=== PATIENT | female | born 1990 | race African-American/Black ===

== ENCOUNTER 2021-11-12 12:43 | Emergency (ER) | payer BC, OTHER ==
--- NOTE | 2021-11-12 14:49 | ER ---
Nurse's Notes [facility] Name: Zechariah Lyles Age: 30 yrs Sex: Female : 1990 Arrival Date: 11/12/2021 Time: 12:56 Bed Waiting Private MD: Diagnosis: ED Course: 11/12 12:56 Patient arrived in ED. ds1 14:48 Patient's name was called from ER lobby. No response. Unable to locate patient. Will jh5 disposition as left without being seen by a provider. Administered Medications: No medications were administered Outcome: 14:48 Patient left the ED. jh5 Signatures: Maira Nam ds1 Liz Cunningham RN RN jh5
== END 2021-11-12 14:48 | disposition left against medical advice (07) ==
LOC: ER 12:43
DX: Z02.9 Encounter for administrative examinations, unspecified (principal)

== ENCOUNTER 2025-08-04 16:33 | Emergency (ER) | payer OTHER ==
--- OUTSIDE RECORDS SUMMARY | 2025-08-04 16:37 | XMS REPORT | Continuity of Care Document ---
Author Name Unknown Address [address] [place] [address] [facility] [place] Address [address] [place] [address] Care Team Providers Care Dispute Coordinator Name Role Phone Marianne Guzman Primary Care Physician [phone] NELLY TONY Attending Clinician Unavailable SUZI PEREZ Attending Clinician Unavailab le LAB90 Attending Clinician Unavailable BASSAM TOMLINSON Attending Clinician Unavailable Only, Ang Db Test Attending Clinician UnavailBassam Keys MD Attending Clinician [phone] Marianne Guzman Attending Clinician JOHNY NEGRETE Attending Clinician Unavailable Doctor Unassigned, [place] Attending Clinician U SUZI Ruano Attending Clinician Unavailable Payers Payer Name Policy Type Policy Number Effective Date Expirati on Date Source [facility] [id number] 2018 00:00:00 [facility] [employer] 9 [id number] 2025 00:00:00 Problems Condition Name Condition Details Condition Category Status Onset Date Resolution Date Last Treatment Date Treating Clinician Comments Source Moderate episode of recurrent major depressive disorder Moderate episode of recurrent major depressive disorder Disease Active 01-19 00:00: 00 [facility] Allergies, Adverse Reactions, Alerts Allergy Name Allergy Type Status Severity Reaction(s) Onset Date Inactive Date Treating Clinician Comments Source NO KNOWN ALLERGIE S Drug Class Active [facility] Social History Social Habit Start Date Stop Date Quantity Comments Source [facility] of tobacco use Cigarette Smoker [facility] History SDOH Alcohol Frequency [facility] History SDOH [facility] History SDOH Alcohol Binge [facility] Exposure to SARS-CoV-2 (event) 2021-10-13 00:00:00 2021-11-12 13:58:[address] [facility] History of Social function 2019-05-26 00:00:00 2019-05-26 00:00:00 [facility] Alcohol intake 2019-05-18 00:00:00 2019-05-18 00:00:00 Current drinker of alcohol (finding) [facility] Alcohol Comment 2019-01-19 00:00:00 2019-01-19 00:00:00 6-12 pack of beer daily for >1 year. Now only drinking once a week. [facility] Cigarettes smoked current (pack per day) - Reported 2018-09-20 00:00:00 2018-09-20 00:00:00 [facility] Cigarette pack-years 2018-09-20 00:00:00 2018-09-20 00:00:00 [facility] Tobacco use and exposure 2018-09-20 00:00:00 2018-09-20 00:00:00 Smokeless tobacco non-user [facility] Sex Assigned At 1990 00:00:00 1990 00:00:00 [facility] Smoking Status Start Date Stop Date Source Smokes tobacco daily 2018-09-20 00:00:00 [facility] Medications Ordered Medication Name Filled Medication Name Start Date Stop Date Current Medication? Ordering Clinician Indication Dosage Frequency Signature (SIG) Comments Components Source ibuprofen 800 mg tablet 12-14 00:00: 00 Yes [id number] 4 800mg Take 1 tablet by mouth every 8 (eight) hours as needed for Pain (scale 4-6). [facility] methocarbam oL 750 mg tablet 12-14 00:00: 00 Yes [id number] 4 750mg Take 1 tablet by mouth 4 (four) times daily as needed for Other (muscle spasm). [facility] CIMETIDINE 400 mg tablet 2018-11 00:00: 00 Yes [id number] TAKE 1 TABLET BY MOUTH TWICE DAILY [facility] CITALOPRAM 20 mg tablet 2018-11 00:00: 00 Yes [id number] 20mg TAKE 1 TABLET BY MOUTH DAILY [facility] CITALOPRAM 40 mg tablet 04-04 00:00: 00 Yes [id number] 40mg TAKE 1 TABLET BY MOUTH DAILY [facility] Encounters Start Date/Time End Date/Time Encounter Type Admission Type Attending [facility] Care Department Encounter ID Source 2021-09-14 20:39:40 Emergency [facility] [id number] [facility] 2025-10-20 15:00:00 2025-10-20 15:00:00 Outpatient NELLY TONY [id number] [facility] 2025-08-09 10:30:00 2025-08-09 10:30:00 Outpatient SUZI PEREZ [id number] [facility] 2025-07-13 13:50:00 2025-07-13 13:50:00 Outpatient LAB90 JESSICA EARLY [id number] [facility] 2025-07-07 13:15:00 2025-07-07 13:15:00 Outpatient JESSICA EARLY [id number] [facility] 2025-06-29 11:00:00 2025-06-29 11:00:00 Outpatient JESSICA EARLY [id number] [facility] 2025-06-28 11:45:00 2025-06-28 11:45:00 Outpatient LAB90 JESSICA EARLY [id number] [facility] 2025-06-28 11:00:00 2025-06-28 11:00:00 Outpatient SUZI PEREZ JESSICA [id number] Jessica [facility] 2024-09-21 08:17:18 2024-09-21 08:17:18 Outpatient [facility] [id number] Tomas Luu 2024-07-22 11:34:04 2024-07-22 11:34:04 Outpatient [facility] [id number] Tomas Luu 2021-11-12 14:00:00 2021-11-12 14:20:00 Outpatient R BASSAM TOMLINSON [facility] [id number] [facility] 2021-11-12 14:00:00 2021-11-12 14:15:00 Laboratory Only Only, Ang Db Test [facility] AKIN[facility] 1..840.114 [id number] [facility] 2021-02-14 00:00:00 2021-02-14 00:00:00 Patient Secure Msg [facility] ONE 1..840.114 [id number] [facility] 2020-12-27 16:20:00 2020-12-27 16:20:00 Outpatient JOHNY LUNDBERG [facility] [id number] [facility] 2020-06-08 00:00:00 2020-06-08 00:00:00 Patient Secure Msg Doctor Unassigned, [place] [facility] 1..840.114 [id number] [facility] 2020-06-06 08:20:00 2020-06-06 08:20:00 Outpatient R [facility] [id number] [facility] 2020-05-25 13:00:00 2020-05-25 13:00:00 Outpatient SUZI GODINEZ [facility] [id number] [facility]
[2025-08-04 17:45] LABS: Absolute Lymphocytes (CBC) 1.8 K/uL (0.7-4.9); Hematocrit 39.0 % (36.0-45.0); Hemoglobin 13.3 g/dL (12.0-15.0); MCH 30.9 pg (27.0-35.0); MCHC 34.1 g/dL (32.0-36.0); MCV 90.8 fL (80-100); MPV 10.2 fL (7.6-11.3); Nucleated RBC Absolute Count 0.0 (0-0); Nucleated Red Blood Cells % 0.0 % (0-0); RBC Red Blood Cell Count 4.29 M/uL (3.86-4.86); White Blood Count 9.00 thou/uL (4.3-10.9)
[2025-08-04 17:55] LABS: PT Prothrombin Time 13.4 SECONDS (10-13.0); PTT, Activated Partial Thromb 30.6 SECONDS (27.2-37.4); Protime INR 1.19
[2025-08-04 18:09] LABS: ALT/SGPT 16 U/L (13-56); Albumin 4.3 g/dL (3.4-5.0); Albumin/Globulin Ratio 1.1 (1.1-1.8); Alkaline Phosphatase 36 U/L (45-117); Anion Gap 9.5 mEq/L (5.0-15.0); BUN Blood Urea Nitrogen 13 mg/dL (7-18); Bilirubin Indirect, Calculated 0.9 mg/dL (0.2-0.8); Globulin 4.0 g/dL (2.3-3.5); Glucose Level 169 mg/dL (74-106); Magnesium 2.3 mg/dL (1.6-2.4); Potassium 3.5 mEq/L (3.5-5.1); Troponin High Sensitivity 6.2 pg/mL (<58.9)
--- NOTE | 2025-08-04 18:11 | RAD REPORT ---
EXAM: Chest Single View HISTORY: 34 years Female syncope COMPARISON: No prior exams FINDINGS: LUNGS/PLEURA: The lungs are clear. No pleural effusions or pneumothorax. No pulmonary edema. CARDIAC/MEDIASTINUM: The cardiac silhouette is within normal limits. UPPER ABDOMEN: No significant abnormality. BONES: No acute abnormality. LINES/TUBES/OTHER: N/A IMPRESSION: No evidence of acute cardiopulmonary disease.
[2025-08-04 18:14] LABS: AST/SGOT < 10 U/L (15-37)
[2025-08-04 18:18] LABS: Sqamous Epithelial <5 /HPF (None Seen); Urine Culture Reflex Order NOT NEEDED; Urine Microscopic Reflex YN ORDER UMIC; Urine Yeast (Budding) Trace /HPF (None Seen)
[2025-08-04 18:29] LABS: METHAMPHETAM NEGATIVE (NEGATIVE); THC Cannibis NEGATIVE (NEGATIVE)
--- NOTE | 2025-08-04 19:03 | RAD REPORT ---
EXAMINATION: Head C Spine Mpr Wo Con CLINICAL INDICATION: Female, 34 years old. syncope, left leg weakness TECHNIQUE: Axial CT images from the skull base to the vertex without intravenous contrast. Axial CT i mages through the cervical spine were obtained without intravenous contrast. Sagittal and coronal reformatted images were created from the data set. Coronal and sagittal reformatted images were creat ed from the data set. One or more of the following dose reduction techniques were used: Automated exposure control, adjustment of the mA and/or kV according to patient size, and/or iterative reconstr uction. Unless otherwise specified, incidental findings do not require dedicated imaging follow-up. [id number]. COMPARISON: No prior exams FINDINGS: Head: INTRACRANIAL: No acute intracranial hemorrhage. No acute large vascular territory infarct. No hydroce phalus. No mass effect or midline shift. No significant white matter disease. VASCULATURE: No visualized abnormalities in the arteries or dural venous sinuses. SCALP/SKULL: No calvarial fracture identified. No acute soft tissue abnormality. SINUSES: The visualized paranasal sinuses are mostly clear. No significant mastoid fluid. Cervical spine: ALIGNMENT: The cervical spine has normal alignment without scoliosis or spondylolisthesis. BONE: Vertebral body heights are maintained. No aggressive osseous lesions. DEGENERATIVE: No significant focal degenerative changes. SOFT TISSUE: No significant abnormalities in the soft tissue of the neck. The visualized lung apices are clear. IMPRESSION: No acute intracranial abnormality. No acute fracture or traumatic malalignment of the cervical spine.
--- NOTE | 2025-08-04 19:04 | RAD REPORT ---
EXAMINATION: Neck Angio CLINICAL INDICATION: Female, 34 years old. syncope TECHNIQUE: Axial CT images were obtained from the aortic arch to the skull base after intravenous con trast utilizing angiographic protocol with 3D post-processing (maximum intensity projection images, volume rendered images and/or shaded surface rendered images). One or more of the following dose redu ction techniques were used: Automated exposure control, adjustment of the mA and/or kV according to patient size, and/or iterative reconstruction. Unless otherwise specified, incidental findings do not require dedicated imaging follow-up. [id number]. NASCET criteria used. Mild 0-49% stenosis Moderate 50-69% stenosis Severe 70-99% stenosis COMPARISON: No prior exam. FINDINGS: AORTA: Normal RIGHT: - CCA: No flow limiting stenosis (>= 50%). No dissection. - ICA: No flow limiting stenosis (>= 50%). No dissection. - ECA: No flow limiting stenosis (>= 50%). No dissection. LEFT: - CCA: No flow limiting stenosis (>= 50%). No dissection. - ICA: No flow limiting stenosis (>= 50%). No dissection. - ECA: No flow limiting stenosis (>= 50%). No dissection. VERTEBRAL: Patent SOFT TISSUE: No significant neck soft tissue abnormalities. The visualized lung apices are clear. 3D images confirm these findings. IMPRESSION: No arterial dissection or stenosis identified within the neck.
--- NOTE | 2025-08-04 19:10 | RAD REPORT ---
EXAMINATION: Head angio CLINICAL INDICATION: Female, 34 years old. SYNCOPE TECHNIQUE: Axial CT images were obtained through the head after intravenous contrast utilizing angiog raphic protocol with 3D post-processing (maximum intensity projection images, volume rendered images and/or shaded surface rendered images). One or more of the following dose reduction technique s were used: Automated exposure control, adjustment of the mA and/or kV according to patient size, and/or iterative reconstruction. Unless otherwise specified, incidental findings do not require dedic ated imaging follow-up. COMPARISON: No prior exam. FINDINGS: RIGHT: ICA: No aneurysm, stenosis, or occlusion. CALLIE: No aneurysm, stenosis, or occlusion. MCA: No aneurysm, stenosis, or occlusion. RIGGING SLINGER: No aneurysm, stenosis, or occlusion. LEFT: ICA: The left cavernous carotid has a segmental moderate to severe stenosis. The petrous ICA is more normal in caliber. CALLIE: No aneurysm, stenosis, or occlusion. MCA: No aneurysm, stenosis, or occlusion. RIGGING SLINGER: No aneurysm, stenosis, or occlusion. Vertebrobasilar: The vertebral arteries are patent. The basilar artery is normal in appearance. 3D images confirm these findings. IMPRESSION: Moderate to severe segmental narrowing of the left cavernous carotid of uncertain chronicity. The int racranial right ICA is somewhat larger than typically seen. The findings may be chronic. It is unclear if this is the etiology of the patient's symptoms. Could consider neurointerventional referra l and/or consultation.No large vessel occlusion or aneurysm.
[2025-08-04] MEDS ORDERED: LORAZEPAM 1 MG TABLET ONE (19:25)
--- NOTE | 2025-08-04 20:16 | EDPHYS ---
Physician Documentation [facility] Name: Zechariah Lyles Age: 34 yrs Sex: Female : 1990 Arrival Date: 08/04/2025 Time: 16:33 Bed 14 Private MD: ED Physician Naseem Batres HPI: 08/04 17:05 This 34 yrs old Black Female presents to ER via Ambulatory with complaints of Passed cp Out Prior To Arrival, Head Injury-Adult. 17:05 The patient has experienced syncope, lost consciousness. cp 17:05 Patient is a 34-year-old female with no significant past medical history who presents cp emergency department after reported syncopal episode. Patient reports she was standing when she leaned over to put on her sock and then reports waking up on the floor. 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 Patient reports she did not lose consciousness but reports being dazed and having to stop work to go sit down in the office to recover. Patient reports she does have a appointment with neurology but that is not until October. [employer]AD [employer]ER: 16:53 LMP 07/06/2025, unknown dd2 Historical: - Allergies: 16:53 No Known Allergies; dd2 - PMHx: 16:53 None; dd2 - PSHx: 16:53 None; dd2 - Immunization history:: Adult Immunizations up to date. - Infectious Disease History:: Denies. - Social history:: Smoking status: Reported history of juuling and/or vaping. ROS: 17:10 Constitutional: Negative for body aches, chills, fever, poor PO intake, cp 17:10 Eyes: Negative for injury, pain, redness, and discharge, cp 17:10 ENT: Negative for drainage from ear(s), ear pain, sore throat, difficulty swallowing, difficulty handling secretions, 17:10 Cardiovascular: Negative for chest pain, edema, palpitations, 17:10 Respiratory: Negative for cough, shortness of breath, wheezing, 17:10 Abdomen/GI: Negative for abdominal pain, vomiting, diarrhea, constipation, 17:10 Back: Negative for pain at rest, pain with movement, 17:10 : Negative for urinary symptoms, vaginal bleeding, 17:10 Neuro: Positive for headache, syncope, weakness of left hand and left leg, Negative for altered mental status, dizziness, seizure activity, 17:10 All other systems are negative, Exam: 17:15 Constitutional: The patient appears in no acute distress, alert, awake, cp non-diaphoretic, non-toxic, well developed, well nourished, anxious, 17:15 Head/Face: Normocephalic, atraumatic. cp 17:15 Eyes: Periorbital structures: appear normal, Conjunctiva: normal, no exudate, no injection, Sclera: no appreciated abnormality, Lids and lashes: appear normal, bilaterally, 17:15 ENT: External ear(s): are unremarkable, Ear canal(s): are normal, clear, TM's: dullness, bilaterally, Nose: is normal, Mouth: Lips: moist, Oral mucosa: moist, Posterior pharynx: Airway: no evidence of obstruction, patent, erythema, is not appreciated, exudate, is not appreciated, 17:15 Neck: External neck: tenderness, that is mild, of the lower cervical area, ROM/movement: pain, that is mild, with any movement, limited range of motion, is not appreciated, 17:15 Chest/axilla: Inspection: normal, Palpation: is normal, no crepitus, no tenderness, 17:15 Cardiovascular: Rate: normal, Rhythm: regular, Edema: is not appreciated, JVD: is not appreciated, 17:15 Respiratory: the patient does not display signs of respiratory distress, Respirations: normal, no use of accessory muscles, no retractions, labored breathing, is not present, Breath sounds: are clear throughout, no decreased breath sounds, no stridor, no wheezing, 17:15 Abdomen/GI: Inspection: abdomen appears normal, Palpation: abdomen is soft and non-tender, in all quadrants, 17:15 Back: pain, is absent, ROM is normal, 17:15 Neuro: Orientation: to person, place \T\ time. 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 cp Vital Signs: 16:48 BP 124 / 78; Pulse 90; Resp 16; Temp 98.2; Pulse Ox 100% on R/A; Weight 58.51 kg; Pain dd2 10/10; 19:39 BP 121 / 91; Pulse 72; Resp 16; Pulse Ox 100% ; Pain 0/10; kt5 20:14 BP 107 / 6; Pulse 95; Resp 18; Pulse Ox 99% ; kt5 21:09 BP 122 / 86; Pulse 76; Resp 18; Pulse Ox 99% ; Pain 0/10; kt5 22:00 BP 152 / 73; Pulse 88; Resp 16; Temp 98.2; Pulse Ox 100% ; Pain 0/10; kt5 16:48 Pain Scale: Adult dd2 19:39 Pain Scale: Adult kt5 21:09 Pain Scale: Adult kt5 22:00 Pain Scale: Adult kt5 [place] Coma Score: 16:48 Eye Response: spontaneous(4). Motor Response: obeys commands(6). Verbal Response: dd2 oriented(5). Total: 15. MDM: 16:44 Medical Screening Exam initiated cp 18:00 Differential Diagnosis: cardiac arrhythmia, cerebrovascular accident, GI bleed, cp idiopathic syncope, pseudo seizure, seizure, transient ischemic attack, vasovagal episode. 20:33 Data reviewed: vital signs, lab test result(s), radiologic studies, CT scan, plain tt7 films. Historians other than the Patient: Parent: . ED course: This is a 34-year-old female who has had 2 syncopal episodes since a head injury a few months ago, since then has been having shakiness of her voice and left-sided upper and lower extremity weakness, had another syncopal episode today, workup showed some moderate to severe stenosis of the left ICA, or weaknesses not acute, not a candidate for thrombolytics, no acute large vessel occlusion seen on imaging, on my assessment the patient is awake and alert with stable vital signs, no acute distress, normal respirations, stable vital signs, does have some shakiness to her voice and some weakness of the left upper and lower extremities, will transfer to higher level of care for MRI imaging and further specialty evaluation and workup. 20:35 ED course: consult with DR Soares, hospitalist at [facility], will accept patient cp as transfer after discussion. 08/04 17:04 Order name: UDS; Complete Time: 19:02 08/04 19:03 Interpretation: Reviewed. 08/04 17:04 Order name: Test, Urine; Complete Time: 19:02 08/04 17:04 Order name: UA Rfx Arcenio Cult if indicated; Complete Time: 18:24 08/04 19:03 Interpretation: Normal except: UCLA Turbid; UKET 4+ (Over); UBLD Trace; UPROT 1+; UUROB cp 1+; BYST Trace. 08/04 17:04 Order name: Basic Metabolic Panel; Complete Time: 18:24 08/04 19:03 Interpretation: Normal except: CL 110; GLUC 169; GFR 79. 08/04 17:04 Order name: CBC with Diff; Complete Time: 18:24 08/04 17:04 Order name: Hepatic Function; Complete Time: 18:24 08/04 19:03 Interpretation: Normal except: AST < 10; ALK 36; BILIT 1.2; BILID 0.3; IBILI, CALC 0.9; cp TP 8.3; GLOB 4.0. 08/04 17:04 Order name: Magnesium; Complete Time: 18:24 08/04 17:04 Order name: Protime (+inr); Complete Time: 18:24 08/04 17:04 Order name: Ptt, Activated; Complete Time: 18:24 08/04 17:04 Order name: Troponin High Sensitivity; Complete Time: 18:24 08/04 17:04 Order name: Chest Single View XRAY; Complete Time: 18:24 08/04 18:27 Order name: CT Head C Spine; Complete Time: 19:20 08/04 19:20 Interpretation: Reviewed report. 08/04 18:27 Order name: CT Head Angio; Complete Time: 19:20 08/04 18:27 Order name: CT Neck Angio; Complete Time: 19:20 08/04 17:04 Order name: EKG; Complete Time: 17:04 08/04 17:04 Order name: Orthostatic Blood Pressure; Complete Time: 18:16 08/04 17:04 Order name: Cardiac monitoring; Complete Time: 17:43 08/04 17:04 Order name: EKG - Nurse/Tech; Complete Time: 17:58 cp 08/04 17:04 Order name: IV Saline Lock; Complete Time: 17:43 cp 08/04 17:04 Order name: Labs collected and sent; Complete Time: 17:43 cp 08/04 17:04 Order name: NPO; Complete Time: 17:43 cp 08/04 17:04 Order name: O2 Per Protocol; Complete Time: 17:43 cp 08/04 17:04 Order name: O2 Sat Monitoring; Complete Time: 17:43 cp EC:00 Rate is 77 beats/min. Rhythm is regular. NC interval is normal. QRS interval is normal. cp QT interval is normal. T waves are Inverted in leads aVR, V2, V3. Interpreted by me. Reviewed by me. Administered Medications: 19:37 Drug: LORazepam PO 1 mg PO once Route: PO; kt5 20:16 Follow up: Response: No adverse reaction; Anxiety decreased kt5 Disposition: 17:56 I was immediately available on-site in the Emergency Department for consultation in the ms3 care of the patient. 23:42 Co-signature as Attending Physician, Naseem Batres DO I reviewed the patient's care tt7 provided by Advanced Practice Provider \T\ agree w/ the diagnosis \T\ care plan. I personally saw the pt \T\ performed a substantive portion of the visit, incldng all aspects of the (History/Exam/Medical Decision Making). Disposition Summary: 08/04/25 20:15 Transfer Ordered Notes: Transfer Location: [facility] cp Reason: Higher level of care cp Condition: Stable cp Problem: new cp Symptoms: have improved cp Accepting Physician: DR Soares(08/04/25 22:53) kt5 Diagnosis - Syncope cp - Moderate/Severe Stenosis Left Cavernous Carotid cp - Weakness - left arm and left leg cp Forms: - Medication Reconciliation Form cp - SBAR form cp Signatures: Dispatcher [employer] EDMS Jaylon Turner PA-C PA-C cp Sims, Marcus, DO DO ms3 SANAM PISANO RN RN dd2 Carolina Aguirre RN RN kt5 Naseem Batres DO DO tt7 Corrections: (The following items were deleted from the chart) 17:04 17:04 URINE DRUG SCREEN+UC.LAB.BRZ ordered. EDMS EDMS 17:04 17:04 Test, Urine+UC.LAB.BRZ ordered. EDMS EDMS 17:04 17:04 UA Rfx Arcenio Cult if indicated+U.LAB.BRZ ordered. EDMS EDMS 17:04 17:04 BASIC METABOLIC PANEL+C.LAB.BRZ ordered. EDMS EDMS 17:04 17:04 CBC+H.LAB.BRZ ordered. EDMS EDMS 17:04 17:04 HEPATIC FUNCTION+C.LAB.BRZ ordered. EDMS EDMS 17:04 17:04 MAGNESIUM+C.LAB.BRZ ordered. EDMS EDMS 17:04 17:04 PROTIME (+INR)+COAG.LAB.BRZ ordered. EDMS EDMS 17:04 17:04 PTT, ACTIVATED+COAG.LAB.BRZ ordered. EDMS EDMS 17:04 17:04 Troponin High Sensitivity+C.LAB.BRZ ordered. EDMS EDMS 18:27 18:27 Neck Angio+CT.RAD.BRZ ordered. EDMS EDMS 20:17 20:15 Doctor cp cp 21:15 20:17 Doctor cp cp 22:53 21:15 DR Soares cp kt5
--- NOTE | 2025-08-04 20:16 | ER ---
Nurse's Notes [facility] Name: Zechariah Lyles Age: 34 yrs Sex: Female : 1990 Arrival Date: 08/04/2025 Time: 16:33 Bed 14 Private MD: Diagnosis: Syncope;Moderate/Severe Stenosis Left Cavernous Carotid;Weakness-left arm and left leg Presentation: 08/04 16:48 Chief complaint: Patient states: SHE LEANED OVER PUTTING ON SOCKS, WOKE UP ON THE dd2 FLOOR. REPORTS HURTING FROM HITTING SOMETHING. FALL UNWITNESSED, UNSURE HOW LONG ON THE FLOOR. PT REPORTS PASSED OUT IN MARCH, WENT TO [facility] IN JUNE AND HAS NEURO APT IN Oct FOR PASSING OUT, TREMORS AND MUSCLE WEAKNESS AMD LT LEG PAIN. Coronavirus screen: At this time, the client does not indicate any symptoms associated with coronavirus-19. Ebola Screen: No symptoms or risks identified at this time. Mechanism of Injury: resulted from a fall, from a standing position. Initial Sepsis Screen: Does the patient meet any 2 criteria? No. Patient's initial sepsis screen is negative. Does the patient have a suspected source of infection? No. Patient's initial sepsis screen is negative. Risk Assessment: Do you want to hurt yourself or someone else? Patient reports no desire to harm self or others. Onset of symptoms was August 04, 2025. 16:48 Method Of Arrival: Ambulatory dd2 16:48 Acuity: KARRI 3 dd2 Triage Assessment: 16:53 General: Appears uncomfortable, Behavior is cooperative, appropriate for age, crying. dd2 Pain: Complains of pain in top of head and left leg. Neuro: Level of Consciousness is awake, alert, obeys commands, Oriented to person, place, time, situation, Appropriate for age Reports headache. Musculoskeletal: Circulation, motion, and sensation intact. Range of motion: intact in all extremities, Reports pain in left leg. ARMATURE WINDER REPAIR: 16:53 LMP 07/06/2025, unknown dd2 Historical: - Allergies: 16:53 No Known Allergies; dd2 - PMHx: 16:53 None; dd2 - PSHx: 16:53 None; dd2 - Immunization history:: Adult Immunizations up to date. - Infectious Disease History:: Denies. - Social history:: Smoking status: Reported history of juuling and/or vaping. Screenin:40 [facility] ED Fall Risk Assessment (Adult) History of falling in the last 3 months, jp5 including since admission Yes- physiologic fall (2 pts) Confusion or Disorientation No (0 pts) Intoxicated or Sedated No (0 pts) Impaired Gait No (0 pts) Mobility Assist Device Used No (0 pt) Altered Elimination No (0 pt) Score/Fall Risk Level 0 - 2 = Low Risk Oriented to surroundings, Maintained a safe environment, Educated pt \T\ family on fall prevention, incl call for assistance when getting out of bed, Assessed \T\ reinforced patient's understanding of fall precautions, Provided non-skid footwear, Hourly rounding (assess needs \T\ fall precautionary measures) done. Abuse screen: Denies threats or abuse. Denies injuries from another. Nutritional screening: No deficits noted. Tuberculosis screening: No symptoms or risk factors identified. Assessment: 17:26 Reassessment: Patient and/or family updated on plan of care and expected duration. Pain ll1 level reassessed. 17:40 General: Appears in no apparent distress. Behavior is cooperative, anxious. Neuro: jp5 Level of Consciousness is awake, obeys commands, Oriented to person, place, time, situation, Appropriate for age. 19:13 General: received report from staff psychologist, all questions answered. kt5 19:39 Reassessment: Patient appears in no apparent distress at this time. Patient and/or kt5 family updated on plan of care and expected duration. Pain level reassessed. Patient is alert, oriented x 3, equal unlabored respirations, skin warm/dry/pink. Patient denies pain at this time. General: Behavior is cooperative, anxious. Neuro: [place] Agitation-Sedation Scale (RASS):. 20:14 Reassessment: Patient appears in no apparent distress at this time. Patient and/or kt5 family updated on plan of care and expected duration. Pain level reassessed. Patient is alert, oriented x 3, equal unlabored respirations, skin warm/dry/pink. Patient states feeling better. Patient states symptoms have improved. 21:09 Reassessment: Patient appears in no apparent distress at this time. Patient and/or kt5 family updated on plan of care and expected duration. Pain level reassessed. Patient is alert, oriented x 3, equal unlabored respirations, skin warm/dry/pink. Patient denies pain at this time. Patient states feeling better. Patient states symptoms have improved. Neuro: [place] Agitation-Sedation Scale (RASS): 0 - Alert and Calm. 22:00 Reassessment: Patient appears in no apparent distress at this time. Patient and/or kt5 family updated on plan of care and expected duration. Pain level reassessed. Patient is alert, oriented x 3, equal unlabored respirations, skin warm/dry/pink. Patient denies pain at this time. Patient states feeling better. Patient states symptoms have improved. 22:39 General: report given to ems, all questions answered. kt5 Vital Signs: 16:48 BP 124 / 78; Pulse 90; Resp 16; Temp 98.2; Pulse Ox 100% on R/A; Weight 58.51 kg; Pain dd2 10/10; 19:39 BP 121 / 91; Pulse 72; Resp 16; Pulse Ox 100% ; Pain 0/10; kt5 20:14 BP 107 / 6; Pulse 95; Resp 18; Pulse Ox 99% ; kt5 21:09 BP 122 / 86; Pulse 76; Resp 18; Pulse Ox 99% ; Pain 0/10; kt5 22:00 BP 152 / 73; Pulse 88; Resp 16; Temp 98.2; Pulse Ox 100% ; Pain 0/10; kt5 16:48 Pain Scale: Adult dd2 19:39 Pain Scale: Adult kt5 21:09 Pain Scale: Adult kt5 22:00 Pain Scale: Adult kt5 [place] Coma Score: 16:48 Eye Response: spontaneous(4). Motor Response: obeys commands(6). Verbal Response: dd2 oriented(5). Total: 15. ED Course: 16:39 Patient arrived in ED. cj3 16:42 Jaylon Turner PA-C is PHCP. cp 16:42 Osman Rose DO is Attending Physician. cp 16:53 Triage completed. dd2 16:53 Arm band placed on right wrist. dd2 17:26 Patient placed in an exam room, on a stretcher. ll1 17:28 Ivana Sepulveda, RN is Primary Nurse. jp5 17:40 No provider procedures requiring assistance completed. jp5 17:40 Inserted saline lock: 20 gauge in right antecubital area, using aseptic technique. jp5 Blood collected. Flushed with 10 mL NS. 17:43 Basic Metabolic Panel Sent. jp5 17:43 CBC with Diff Sent. jp5 17:43 Hepatic Function Sent. jp5 17:43 Magnesium Sent. jp5 17:43 Protime (+inr) Sent. jp5 17:43 Ptt, Activated Sent. jp5 17:43 Troponin High Sensitivity Sent. jp5 17:58 EKG done, by ophthalmic technician apprentice. reviewed by Jaylon Turner PA-C. ts3 18:03 Chest Single View XRAY In Process Unspecified. EDMS 18:56 CT Head C Spine In Process Unspecified. EDMS 18:56 CT Head Angio In Process Unspecified. EDMS 18:56 CT Neck Angio In Process Unspecified. EDMS 19:13 Carolina Aguirre, RN is Primary Nurse. kt5 19:23 Patient has correct armband on for positive identification. Bed in low position. Call kt5 light in reach. Side rails up X 1. Client placed on continuous cardiac and pulse oximetry monitoring. NIBP monitoring applied. Door closed. Noise minimized. Warm blanket given. Pillow given. 19:43 Attending Physician role handed off by Osman Rose DO tt7 19:43 Naseem Batres DO is Attending Physician. tt7 Administered Medications: 19:37 Drug: LORazepam PO 1 mg PO once Route: PO; kt5 20:16 Follow up: Response: No adverse reaction; Anxiety decreased kt5 Medication: 17:40 VIS not applicable for this client. jp5 Outcome: 20:15 ER care complete, transfer ordered by . 22:53 [place]red by ground EMS [place] [facility] [facility] [place] 22:53 Condition: improved 22:53 Patient left the ED. kt5 Signatures: Dispatcher [employer] EDMS Jaylon Turner PA-C PA-C cp Lewis, Lynsay, PAUL RN ll1 Ivana Sepulveda RN RN [email or web address] SANAM PISANO RN RN dd2 Saba Lopez 3 Tessa Dang ts3 Carolina Aguirre, PAUL RN kt5 Naseem Batres DO DO tt7 Corrections: (The following items were deleted from the chart) 22:52 22:51 General: report given to ems, all questions answered. kt5 kt5
[2025-08-04 23:08] VITALS: TEMP 98.2
[2025-08-04 23:14] VITALS: BP 152/73; O2SAT 100
== END 2025-08-04 22:53 | disposition short-term general hospital (02) ==
LOC: ER 16:33
DX: R55 Syncope and collapse (principal); I65.22 Occlusion and stenosis of left carotid artery; R53.1 Weakness
CPT/HCPCS: 93005; 85025; 81001; 80048; 36415; 83735; 81025; 85610; 80076; 85730; 84484; 80307; 70450; 72125; 70496; 70498; 71045; 99285; Q9967